=== PATIENT | male | born 1990 | race African-American/Black ===

== ENCOUNTER 2020-11-02 09:19 | Emergency (ER) | payer MEDICAID ==
[~2020-11-02] VITALS: Ht 172.7 cm; Wt 124.3 kg
[2020-11-02 09:28] VITALS: BP 157/97
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
[2020-11-02] MEDS ORDERED: risperiDONE 0.25 MG TABLET PO ONE ×2 (10:30→11:07)
--- NOTE | 2020-11-02 10:33 | NUR ---
covid swab done and sent to the lab
--- NOTE | 2020-11-02 10:37 | NUR ---
urine collected and sent to the lab
[2020-11-02 10:47] LABS: BILIRUBIN,URINE Negative (NEGATIVE); COLOR,URINE YELLOW (YELLOW); LEUKOCYTE ESTERASE ,URINE Negative (NEGATIVE); NITRITE, URINE Negative (NEGATIVE); PROTEIN,URINE Negative (NEGATIVE); UGLUCOSE Negative (NEGATIVE); UROBILINOGEN,URINE 0.2 EU/dL (0.2)
[2020-11-02] MEDS ORDERED: FUROSEMIDE 40 MG TABLET ONE (10:52)
[2020-11-02] MEDS ORDERED: risperiDONE 1 MG TABLET ONE (10:53)
[2020-11-02 10:56] LABS: BACTERIA,URINE None seen /HPF (None Seen); SQUAMOUS EPITHELIAL CELL,UR Few /HPF (None Seen); WBC,URINE 0-2 /HPF (0-3)
[2020-11-02 11:09] LABS: BASOPHILS % (AUTO) 0.7 % (0.0-2.0); HEMATOCRIT 44 % (39-51); HEMOGLOBIN 14.5 g/dL (13.5-17.5); LYMPHOCYTES # (AUTO) 2.2 K/uL (0.8-4.8); LYMPHOCYTES % (AUTO) 41.9 % (20.0-44.0); MEAN CORPUSCULAR HGB CONC 33 g/dl (31.0-36.0); MEAN CORPUSCULAR VOLUME 85 fL (80-96); MONOCYTES # (AUTO) 0.6 K/uL (0.1-1.30); NEUTROPHILS # (AUTO) 2.3 K/uL (1.8-8.9); NEUTROPHILS % (AUTO) 43.4 % (43.0-81.0); PLATELET COUNT (AUTO) 228 K/uL (150-450); RED BLOOD CELL COUNT(AUTO) 5.25 MIL/uL (4.5-6.0); WHITE BLOOD COUNT (AUTO) 5.2 K/uL (4.3-11.0)
[2020-11-02 11:20] LABS: CALCIUM, SERUM 8.3 mg/dL (8.5-10.1); CARBON DIOXIDE 26 mmol/L (21-32); CHLORIDE 107 mmol/L (98-107); GLUCOSE 81 mg/dL (74-106); POTASSIUM 4.3 mmol/L (3.5-5.1); SODIUM SERUM 144 mmol/L (136-145); UREA NITROGEN, BLOOD 10 mg/dL (7-18)
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
[2020-11-02 11:26] LABS: ACETAMINOPHEN < 0 ug/ml (10-30); ALANINE AMINOTRANSFERASE 39 U/L (12-78); ALBUMIN 3.7 g/dL (3.4-5.0); ALCOHOL, BLOOD 73 mg/dL (0-0); ALKALINE PHOSPHATASE 84 U/L (46-116); ASPARTATE AMINOTRANSFERASE 26 U/L (15-37); BILIRUBIN,DIRECT 0.1 mg/dL (0.0-0.2); BILIRUBIN,TOTAL 0.6 mg/dL (0.2-1.0); TOTAL PROTEIN, SERUM 6.9 g/dL (6.4-8.2)
--- NOTE | 2020-11-02 11:35 | NUR ---
Community Outreach Director note: Patient is currently on a 5150 hold for DTS. Patient requested psychiatric admission due to suicidal ideation. DIOR faxed clinicals to: [facility] [phone] [facility] [phone] Timmy Haynes [facility] [phone]
--- NOTE | 2020-11-02 13:52 | NUR ---
COVID PCR SWAB DONE AND SENT TO THE LAB
--- NOTE | 2020-11-02 15:20 | NUR ---
Retort Press Operator note: DIOR spoke to Marquez:[phone] [facility] and was instructed to re-fax clinicals once patient's presumptive Medi-Rogelio and PCR was done. DIOR re-faxed updated clinicals to [facility] for review, . SS will continue to update ED clinical staff pharmacist.
--- NOTE | 2020-11-02 15:42 | NUR ---
Family Court Counsellor note: DIOR was notified by Marquez at [facility] that the patient has been accepted. Marquez stated that the patient won't be able to be transported until later this evening. Marquez will follow up with ED staff for updates.
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
--- NOTE | 2020-11-02 18:39 | NUR ---
CALLED [facility] FOR TRANSPORT TO [facility]. ETA 45-60 MINUTES.
--- NOTE | 2020-11-02 19:16 | NUR ---
TO GIVE REPORT AFTER 1929 TEL [phone]
--- NOTE | 2020-11-02 19:24 | NUR ---
Patient discharged from ER in stable condition going to [facility]. Written and verbal after care instructions given. Patient verbalizes understanding of instruction. Picked up by done by the arrnaged transpo.
== END 2020-11-02 19:26 ==
LOC: ER 09:27
DX: F29 Unspecified psychosis not due to a substance or known physiological condition (principal); R45.851 Suicidal ideations; S02.2XXA Fracture of nasal bones, initial encounter for closed fracture; Y04.0XXA Assault by unarmed brawl or fight, initial encounter; Y92.89 Other specified places as the place of occurrence of the external cause; Z20.822 Contact with and (suspected) exposure to COVID-19; Z59.0 Homelessness
CPT/HCPCS: 36415; 70486; 80048; 80076; 80143; 80307; 80320; 81001; 84484; 85025; 87426; 99285; C9803 ×2; U0003; G0480